=== PATIENT | female | born 2000 | race Caucasian/White ===

== ENCOUNTER 2021-01-12 10:08 | Emergency (ER) | payer OTHER ==
[~2021-01-12] VITALS: Ht 167.6 cm; Wt 100.0 kg
[2021-01-12] MEDS ORDERED: AMOXICILLIN500 MG PO (11:20)
[2021-01-12 11:30] VITALS: BP 117/65
== END 2021-01-12 11:35 | disposition home or self-care (01) ==
LOC: ED 10:08
DX: O99.512 Diseases of the respiratory system complicating pregnancy, second trimester (principal); J02.9 Acute pharyngitis, unspecified; Z3A.20 20 weeks gestation of pregnancy; Z20.822 Contact with and (suspected) exposure to COVID-19

== ENCOUNTER 2021-02-23 16:53 | Emergency (ER) | payer OTHER ==
[~2021-02-23 16:53] MED LIST: AMOXICILLIN500 MG PO
[2021-02-23 19:28] LABS: HEMATOCRIT 33.3 % (37.0-47.0); HEMOGLOBIN 10.9 g/dl (12.0-16.0); IMMATURE GRANULOCYTES 0.7 % (0.0-5.0); MEAN CELL VOLUME 94.6 fL CALC (80.0-100.0); MEAN CORPUSCULAR HGB CONC 32.7 g/dL CAL (32.0-36.0); NEUT# 7.67 thou/uL (2.00-7.15); RED BLOOD COUNT 3.52 mill/uL (4.20-5.60); RED CELL DISTRI WIDTH 13.1 % (11.5-15.5)
[2021-02-23 19:47] LABS: ALBUMIN 3.4 g/dL (3.2-5.0); ALKALINE PHOSPHATASE 72 u/l (38-126); ANION GAP 13 (6-22 (CALC)); BILIRUBIN, TOTAL 0.2 mg/dL (0.0-1.4); BUN 6 mg/dL (7-17); BUN/CREATININE RATIO 13 (12-20 (CALC)); CARBON DIOXIDE 23 mmol/l (22-30); CHLORIDE 103 mmol/l (95-108); CREATININE 0.4 mg/dL (0.5-1.0); GFR > 60 ML/MIN (>=60 (CALC)); GFR FOR AFR.AMER. > 60 ML/MIN (>=60 (CALC)); SGOT/AST 12 u/l (14-36); SODIUM 135 mmol/l (137-146); TOTAL PROTEIN 6.3 g/dL (6.3-8.2)
[2021-02-23 19:51] VITALS: BP 129/83
== END 2021-02-23 19:50 | disposition left against medical advice (07) ==
LOC: ED 16:53
DX: O26.892 Other specified pregnancy related conditions, second trimester (principal); R10.2 Pelvic and perineal pain; Z3A.26 26 weeks gestation of pregnancy; Z91.19 Patient's noncompliance with other medical treatment and regimen

== ENCOUNTER 2021-04-07 09:59 | Emergency (ER) | payer OTHER | END 2021-04-07 10:04 | disposition left against medical advice (07) | DRG 951 | LOC: ED 09:59 → LWOBS 10:03 | DX: Z53.21 Procedure and treatment not carried out due to patient leaving prior to being seen by health care provider (principal) ==

== ENCOUNTER 2021-06-27 15:12 | Emergency (ER) | payer OTHER ==
[~2021-06-27] VITALS: Ht 167.6 cm; Wt 102.2 kg
[2021-06-27] MEDS ORDERED: AMOXICILLIN500 MG PO (17:18)
[2021-06-27 17:40] VITALS: BP 132/78
== END 2021-06-27 17:40 | disposition home or self-care (01) ==
LOC: ED 15:12
DX: J02.9 Acute pharyngitis, unspecified (principal); F32.A Depression, unspecified; F41.9 Anxiety disorder, unspecified; Z20.822 Contact with and (suspected) exposure to COVID-19

== ENCOUNTER 2021-07-20 11:24 | Emergency (ER) | payer OTHER ==
[~2021-07-20] VITALS: Ht 167.6 cm; Wt 100.0 kg
[2021-07-20] MEDS ORDERED: DECADRON4 M1 PO (18:28)
[2021-07-20 18:56] VITALS: BP 130/79
== END 2021-07-20 18:56 | disposition home or self-care (01) ==
LOC: ED 11:24
DX: L29.9 Pruritus, unspecified (principal); R53.83 Other fatigue; H53.8 Other visual disturbances; F32.A Depression, unspecified; F41.9 Anxiety disorder, unspecified